=== PATIENT | male | born 2000 ===

== ENCOUNTER 2025-10-09 22:25 | Emergency (ER) | payer MEDICAID ==
[~2025-10-09] VITALS: Ht 188 cm; Wt 127.2 kg
[2025-10-09 22:39] VITALS: BP 160/95; PULSE 72; RESP 18; TEMP 98; O2SAT 98
[2025-10-09 23:12] LABS: MEAN PLATELET VOLUME 6.8 FL (7.4-10.4); RED CELL DISTRIBUTION WIDTH 13.3 % (11.5-14.5)
--- NOTE | 2025-10-09 23:15 | RADIOLOGY REPORT ---
CHEST RADIOGRAPH INDICATION: CP TECHNIQUE: Single frontal view of the chest was obtained COMPARISON: None FINDINGS: Lines and Tubes: None. Lungs: Clear. Pleura: No pleural effusion or pneumothorax. Cardiomediastinal contours: Unremarkable. IMPRESSION: No abnormality demonstrated.
[2025-10-09 23:35] LABS: CREATININE 1.24 MG/DL (0.60-1.10); TOTAL CARBON DIOXIDE 29.3 MMOL/L (24-32); eCRCL 104 ML/MIN; eGFR 70 ML/MIN
[2025-10-09 23:37] LABS: PRO BRAIN NATRIURETIC PEPTIDE < 30 PG/ML (0-125)
--- NOTE | 2025-10-10 07:21 | ELECTROCARDIOGRAPH REPORT ---
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 Rodger Rodriguez Measurements Intervals [place] Rate: 70 P: 96 MO: 89 QRS: 36 QRSD: 144 T: 45 QT: 405 QTc: 437 Interpretive Statements Sinus rhythm Short MO interval IVCD, consider atypical LBBB Electronically Signed On 10-10-2025 7:35:[address] Rodger Rodriguez Please click the below link to view image of tracing.
== END 2025-10-10 00:45 | disposition left against medical advice (07) ==
LOC: ER 22:26
DX: R10.13 Epigastric pain (principal); R11.10 Vomiting, unspecified; R06.02 Shortness of breath
CPT/HCPCS: 36415; 71045; 80053; 83690; 83880; 84484; 85025; 93005; 99281; 99282